=== PATIENT | female | born 1990 | race Asian ===

== ENCOUNTER 2019-07-10 16:25 | Inpatient (IN) | payer MEDICAID ==
[~2019-07-10] VITALS: Ht 157.5 cm; Wt 59.0 kg
[2019-07-10] MEDS ORDERED: PROMETHAZINE 25 MG/ML VIAL IVP PRN (17:00)
[2019-07-10] MEDS ORDERED: METHYLERGONOVINE 0.2 MG/ML AMP IM PRN (17:00)
[2019-07-10] MEDS ORDERED: OXYTOCIN 10 UNITS/ML VIAL IM SCH (17:00)
[2019-07-10] MEDS ORDERED: NALBUPHINE 10 MG/ML AMP IVP PRN (17:00)
[2019-07-10] MEDS ORDERED: CARBOPROST 250 MCG/ML AMP IM PRN (17:00)
[2019-07-10] MEDS: LACTATED RINGERS 1,000 ML IV SCH (17:15)
[2019-07-10 17:37] LABS: BASOPHILS % (AUTO) 0.2 % (0.0-2.0); EOSINOPHILS # (AUTO) 0.1 K/uL (0-0.4); EOSINOPHILS % (AUTO) 0.4 % (0.0-4.0); HEMOGLOBIN 11.1 g/dL (12.0-16.0); LYMPHOCYTES # (AUTO) 2.2 K/uL (2.5-16.5); LYMPHOCYTES % (AUTO) 18.3 % (20.5-51.1); MEAN CORPUSCULAR HEMOGLOBIN 27 pg (27-31); MEAN CORPUSCULAR HGB CONC 33 g/dL (33-37); MEAN CORPUSCULAR VOLUME 82.4 fL (80-94); MONOCYTES % (AUTO) 8.5 % (1.7-9.3); NEUTROPHILS # (AUTO) 8.7 K/uL (1.8-7.7); NEUTROPHILS % (AUTO) 72.6 % (42.2-75.2); PLATELET COUNT (AUTO) 179 K/uL (140-450); RED BLOOD CELL COUNT(AUTO) 4.13 MIL/uL (4.20-5.40); RED CELL DISTRIBUTION WIDTH 14.4 % (11.6-13.7)
[2019-07-10 17:59] LABS: ALBUMIN 2.4 g/dL (3.4-5.0); ANION GAP 14.4 (8-16); CARBON DIOXIDE 23.3 mmol/L (21-32); CREATININE 0.6 mg/dL (0.6-1.3); POTASSIUM 3.7 mmol/L (3.5-5.1); TOTAL BILIRUBIN 0.2 mg/dL (0.0-1.0)
[2019-07-10] MEDS ORDERED: OXYTOCIN 20 UNITS in LACTATED RINGERS 1,000 ML IV SCH (19:00)
[2019-07-10 21:31] LABS: APPEARANCE,URINE CLEAR (CLEAR); BILIRUBIN,URINE NEGATIVE (NEGATIVE); BLOOD, URINE TRACE-I (NEGATIVE); COLOR,URINE ORANGE (YELLOW); LEUKOCYTE ESTERASE ,URINE TRACE (NEGATIVE); NITRITE, URINE NEGATIVE (NEGATIVE); UGLUCOSE NEGATIVE (NEGATIVE)
[2019-07-10 22:17] LABS: RBC,URINE 0-5 /HPF (0-5); WBC,URINE 0-5 /HPF (0-5)
[2019-07-11] MEDS: LACTATED RINGERS 1,000 ML IV SCH (00:02)
[2019-07-11] MEDS ORDERED: BUPIVACAINE 0.125%/NS PREMIX 250 ML ONE (00:14)
[2019-07-11] MEDS ORDERED: BUPIVACAINE 0.125%/NS PREMIX 250 ML EPI SCH (00:35)
[2019-07-11] MEDS ORDERED: OXYTOCIN 20 UNITS/LR PREMIX 1,000 ML IV ONE (00:40)
[2019-07-11 01:54] VITALS: BP 113/75
[2019-07-11] MEDS ORDERED: OXYTOCIN 10 UNITS/ML VIAL IM PRN (02:55)
[2019-07-11] MEDS ORDERED: METHYLERGONOVINE 0.2 MG TAB PO PRN (02:55)
[2019-07-11] MEDS ORDERED: BENZOCAINE/MENTHOL 20%-0.5% 60 GM CAN TP PRN (02:55)
[2019-07-11] MEDS ORDERED: MEASLES, MUMPS, AND RUBELLA 1 VIAL SQVAC PRN (02:55)
[2019-07-11] MEDS ORDERED: METHYLERGONOVINE 0.2 MG/ML AMP IM PRN (02:55)
[2019-07-11] MEDS: IBUPROFEN 800 MG TAB PO PRN ×2 (05:10→14:57)
--- NOTE | 2019-07-11 08:19 | NUR ---
PATIENT HAS BEEN SCREENED AND CATEGORIZED LOW NUTRITION RISK. PATIENT WILL BE SEEN WITHIN 7 DAYS OF ADMISSION. 07/17/[address]
[2019-07-11 08:26] LABS: HEMATOCRIT 31.7 % (36-48); HEMOGLOBIN 10.4 g/dL (12.0-16.0)
[2019-07-12] MEDS: IBUPROFEN 800 MG TAB PO PRN ×5 (03:30→22:06)
[2019-07-13] MEDS ORDERED: IBUP-2213 PO (07:51)
[2019-07-13] MEDS: IBUPROFEN 800 MG TAB PO PRN (14:23)
== END 2019-07-13 15:20 | disposition home or self-care (01) | DRG 560 ==
LOC: MLD 16:25 → MFCC 07-11 05:50
PROVIDERS: ADMIT Obstetrics & Gynecology; ATTEND Obstetrics & Gynecology
PROC: 10E0XZZ Delivery of Products of Conception, External Approach (ICD-10-PCS; principal; 2019-07-11)
PROC: 0HQ9XZZ Repair Perineum Skin, External Approach (ICD-10-PCS; 2019-07-11)
PROC: 00HU33Z Insertion of Infusion Device into Spinal Canal, Percutaneous Approach (ICD-10-PCS; 2019-07-11)
PROC: 3E0R3BZ Introduction of Anesthetic Agent into Spinal Canal, Percutaneous Approach (ICD-10-PCS; 2019-07-11)
PROC: 3E0234Z Introduction of Serum, Toxoid and Vaccine into Muscle, Percutaneous Approach (ICD-10-PCS; 2019-07-11)
PROC: 3E0134Z Introduction of Serum, Toxoid and Vaccine into Subcutaneous Tissue, Percutaneous Approach (ICD-10-PCS; 2019-07-11)
DX: O42.913 Preterm premature rupture of membranes, unspecified as to length of time between rupture and onset of labor, third trimester (principal); O69.81X0 Labor and delivery complicated by cord around neck, without compression, not applicable or unspecified; O70.0 First degree perineal laceration during delivery; Z37.0 Single live birth; Z3A.36 36 weeks gestation of pregnancy; Z23 Encounter for immunization
CPT/HCPCS: 36415; 51702; 59409; 80053; 81001; 85018; 85025; 86592; 86762; 86886; 86900; 86901; 87340; 90707; 90715; J2590; J3490; J7120